=== PATIENT | female | born 1960 | race Caucasian/White ===

== ENCOUNTER → 2016-12-14 | Outpatient (CLI) | payer OTHER ==
--- NOTE | 2016-12-14 16:58 | US ---
Ultrasound Pelvis Complete (Transabdominal and Endovaginal) Including Duplex/Doppler Imaging History: N92.0, spotting, N95.0, postmenopausal bleeding, R30.0, dysuria, N89.8 vaginal discharge. Technique: Transabdominal and endovaginal ultrasound images were obtained. Endovaginal images obtain ed for better evaluation of the uterine myometrium and adnexa. Duplex/Doppler imaging of adnexa. Findings: Uterus measures 6 x 4 x 3 cm. Endometrial thickness is 5 mm. A few cystic changes noted in the endometrium without endometrial polyp. No definite uterine leiomyomata. Right ovary measures 2 x 1.8 x 0.8 cm. Left ovary measures 1.8 x 1.4 x 0.8 cm. No adnexal masses. No significant free fluid in the pelvis. Color Doppler flow to both ovaries without torsion. Impression: 1. No adnexal masses, ovarian torsion, or ascites. 2. No uterine leiomyomata. 3. Endometrial thickness 5 mm with a few benign cystic endometrial changes.
== END ==
LOC: BRMIMAGING 14:34
PROVIDERS: ATTEND Family Medicine
DX: N95.0 Postmenopausal bleeding (principal); N92.0 Excessive and frequent menstruation with regular cycle; R30.0 Dysuria; N89.8 Other specified noninflammatory disorders of vagina
CPT/HCPCS: 76856-PO

== ENCOUNTER → 2016-12-14 | Outpatient (CLI) | payer OTHER ==
[~2016-12-14] MED LIST: GADOBUTROL 10 ML VIAL IVP ONE
--- NOTE | 2016-12-14 10:21 | MR ---
MRI Abdomen Without and With Contrast, With MRCP at 0750 hours History: Epigastric pain. ICD 10 code R10.13. Follow up liver and pancreatic lesions. Comparison: November 2015. Contrast: 5 mL intravenous Gadavist using a power injector. Technique: A [employer] 3 T magnet is utilized. Axial in and out of phase GRE BH images through the liver, sp charly and pancreas. Coronal T2-weighted images with fat suppression through the abdomen. 3D thin coron al BH long T2-weighted images, from which a 3D model is constructed and reviewed on the independent w orkstation. Thick, long T2 slab images acquired through the biliary tree in a radial acquisition. Axi al T1 fat-suppressed LAVA images both before and after 4 phases of contrast administration. DWI axia l images obtained. Findings: Multiple pancreatic cysts are again visualized. The largest is anterior to the tail of the pancreas measuring 2.0 x 1.7 x 10 mm. There is a similar appearance and size to the prior examination with a thin septation. No evidence of abnormal enhancement. Other smaller pancreatic cysts along the body and tail of the pancreas are similar in size and appearance. No suspicious solid mass or abnorm al enhancement is visualized in the pancreas. There is a lobulated lesion in the posterior right lobe of the liver measuring 3.7 x 3.2 cm with mey pheral nodular enhancement compatible with a benign hemangioma similar in appearance. Smaller lesion is also seen anteriorly in the left lobe of the liver measuring 14 x 17 mm. No new liver lesion is id entified. The right kidney is mildly hypertrophic with normal enhancement and no evidence for hydronephrosis or mass. The left kidney is atrophic and stable in appearance. No significant abdominal lymphadenopathy . Spleen is unremarkable. Impression: 1. Multiple pancreatic cysts stable in appearance probably representing benign epithelial type cyst. 2. Stable benign hemangiomas in the liver. 3. Atrophic left kidney and hypertrophied right kidney.
== END ==
LOC: FIMAGING 07:12
PROVIDERS: ATTEND Internal Medicine
DX: N95.0 Postmenopausal bleeding (principal); N92.0 Excessive and frequent menstruation with regular cycle; R30.0 Dysuria; N89.8 Other specified noninflammatory disorders of vagina
CPT/HCPCS: A9585

== ENCOUNTER → 2017-12-16 | Outpatient (CLI) | payer OTHER | LOC: FIMAGING 13:54 | PROVIDERS: ATTEND Obstetrics & Gynecology Gynecology | DX: Z12.31 Encounter for screening mammogram for malignant neoplasm of breast (principal); Z80.3 Family history of malignant neoplasm of breast ==

== ENCOUNTER → 2018-12-16 | Outpatient (CLI) | payer OTHER | LOC: FIMAGING 10:35 | PROVIDERS: ATTEND Family Medicine | DX: R53.83 Other fatigue (principal); R07.9 Chest pain, unspecified; E03.9 Hypothyroidism, unspecified; Z79.899 Other long term (current) drug therapy ==

== ENCOUNTER → 2019-03-06 | Outpatient (CLI) | payer OTHER | LOC: FIMAGING 13:03 | PROVIDERS: ATTEND Family Medicine | DX: N85.9 Noninflammatory disorder of uterus, unspecified (principal); R10.32 Left lower quadrant pain; R51 Headache; R53.81 Other malaise; R53.83 Other fatigue ==